=== PATIENT | female | born 1995 ===

== ENCOUNTER 2018-08-04 06:00 | Inpatient (IN) ==
[2018-08-04] MEDS ORDERED: *HR* Nalbuphine 10 MG/ML AMPUL IVP PRN (13:59)
[2018-08-04] MEDS ORDERED: Naloxone 0.4 MG/ML INJ IVP PRN (13:59)
[2018-08-04] MEDS ORDERED: Metoclopramide 10 MG/2 ML VIAL IVP PRN (13:59)
[2018-08-04] MEDS ORDERED: Famotidine 20 MG/2 ML VIAL IVP PRN (13:59)
[2018-08-04] MEDS ORDERED: Ondansetron 4 MG/2 ML VIAL IVP PRN (13:59)
[2018-08-04] MEDS ORDERED: miSOPROStol 25 MCG TABLET PO PRN (13:59)
[2018-08-04] MEDS ORDERED: Oxytocin 20 units/ LR 1000 mL 20 UNIT/1,000 ML BAG IVC SCH (14:00)
[2018-08-04 14:41] LABS: Basophils # 0.1 K/mcL (0.0-0.2); Basophils % 0.5 %; Eosinophils # 0.3 K/mcL (0.0-0.6); Eosinophils % 2.6 %; Hematocrit 32.8 % (35.3-44.9); Hemoglobin 11.6 g/dL (11.5-15.4); Immature Granulocytes % 0.7 % (0-4); Lymphocytes # 1.7 K/mcL (0.6-4.6); Lymphocytes % 16.5 %; Mean Corpuscular HGB Conc 35.4 g/dL (31.6-35.5); Mean Corpuscular Hemoglobin 31.4 pg (28.0-33.3); Mean Corpuscular Volume 88.9 fL (83.0-100.0); Mean Platelet Volume 10.2 fL (9.4-12.4); Monocytes # 0.8 K/mcL (0.0-1.3); Monocytes % 7.4 %; Neutrophils # 7.5 K/mcL (1.6-8.9); Platelet Count 287 K/mcL (140-400); Red Blood Count 3.69 M/mcL (3.82-4.97); Red Cell Distribution Width 11.9 % (11.5-14.5); Segmented Neutrophils % 72.3 %
[2018-08-04 14:51] LABS: Amphetamine Screen,Urine Negative ng/mL (Cutoff=1000); Barbiturate Screen,Urine Negative ng/mL (Cutoff=200); Benzodiazepines Screen,Urine Negative ng/mL (Cutoff=200); Cannabinoid Screen,Urine Negative ng/mL (Cutoff = 50); Cocaine Screen,Urine Negative ng/mL (Cutoff= 300); Opiate Screen,Urine Negative ng/mL (Cutoff=300); Phencyclidine Screen,Urine Negative ng/mL (Cutoff=25)
--- NOTE | 2018-08-04 15:41 | OB/GYN History & Physical ---
Date of Encounter: 08/04/18 Time of Encounter: 15:39 Assessment and Plan (1) 39 weeks gestation of Current visit: Yes Status: Acute Admitted for induction of labor (2) NST (non-stress test) reactive Current visit: Yes Status: Acute FHR 145 bpm, moderate variability, +15x15 accels, no decels Irregular contractions. (3) Polyhydramnios affecting in third trimester Current visit: Yes Status: Acute Last LALITHA on 07/17/18 was 22.22 with largest pocket 9.43 Admitted for induction of labor at 39.0 wks Plan of care discussed with Dr. Hernandez, physician vocational rehabilitation consultant. History of Present Illness Chief complaint: Induction of labor at 39.0 wks for polyhydramnios HPI: Ms. Dobbins is a 23 year old female G1 at 39.0 wks who presents for induction of labor secondary to term and polyhydramnios. Her was compensated by an elevated one-hour glucose of 180, her 3 hour GTT was normal. Patient also had torch titers drawn due to polyhydramnios the toxoplasmosis IgM came back elevated but after discussion with [facility] was decided it was likely a false positive and Dr. Vega recommended no further intervention. Patient reports today positive movement, denies vaginal bleeding and leakage of fluid. She does have a specific plan and at this time requests no medication for induction but does agree to a cervical Sosa. Blood type A+ GBS negative HbsAG negative Rubella immune Varicella immune T pal negative HIV-negative Past Med Surg Social Fam HX - Past Medical History Source: patient Medical history: no medical history Psychiatric history: no psych history - Past Surgical History Surgical History: no surgical history - Social History Smoking Status: Never smoker Smokeless Tobacco Status: No Alcohol use: none Drug use: none Current living situation: Home - Independent, With Family Activity Level: Independent ambulation Recent Out of Country Travel Within the Last 8 Weeks: No Exposure or Possible Exposure to Illness During Travel: No - Family History Mother Name: Pt. denies any family medical history Obstetrical History - Pregnancies : 1 Para: 0 Term: 0 : 0 Ab's: 0 Livin Medications and Allergies Pnv No.95/Ferrous Fum/Folic AC [ Caplet] 1 each PO DAILY 08/04/18 [History] Allergy/AdvReac Type Severity Reaction Status Date / Time No Known Allergies Allergy Verified 08/04/18 14:03 Exam - Constitutional Constitutional: well developed, well nourished, no acute distress, average body habitus - Neck Neck exam: full ROM, normal inspection - Lungs Respiratory exam: CTAB - Cardiovascular Cardiovascular exam: RRR, +S1, +S2 - Breasts Breast: bilateral: normal - Abdomen Abdomen: Present: bowel sounds normal, gravid, non tender - Extremities Extremities exam: full ROM, normal capillary refill, normal inspection - Vulva Vulva: bilateral: normal - Vagina Vagina: Present: normal moisture - Anus/Rectum Anus/Rectum: Present: normal perianal skin Results Result Diagrams: 08/04/18 14:01 Abnormal lab results RBC 3.69 M/mcL (3.82-4.97) L 08/04/18 14:01 Hct 32.8 % (35.3-44.9) L 08/04/18 14:01 All other labs normal. - VTE Reasons for not Prescribing Prophylaxis: Treatment not Indicated - Low risk for VTE
--- NOTE | 2018-08-04 17:40 | OB Labor Progress Note ---
Date of Encounter: 08/04/18 Time of Encounter: 16:40 Labor Progress Note - Subjective Subjective: Patient resting in rocking chair. Denies pain at this time. - Vital Signs Vital Signs: WNL - Cervix Cervix: 2/70/-2 - Heart Tones Heart Tones: FHR 145 bpm, moderate variability, +15x15 accels, no decels. - Ama Ama: Irregular - Interventions Interventions: SVE Cervical nicole double balloon inserted without difficulty, 60 ml sterile water instilled into uterine balloon, 40 ml sterile water instilled in vaginal balloon. Patient tolerated procedure well. - Plan Physician notified: Yes Physician notified details: Dr. Garcia notified of cervical nicole insertion, last LALITHA and EFW and plan of care including patient wishes for a natural Plan: Allow patient to ambulate as she tolerates, continue expectant management Remove nicole after 12 hours unless patient unable to tolerate prior to that time. Nursing may remove 10 mL every hour from vaginal nicole if patient unable to tolerate.
--- NOTE | 2018-08-04 21:20 | OB Labor Progress Note ---
Date of Encounter: 08/04/18 Time of Encounter: 21:18 Labor Progress Note - Subjective Subjective: Patient coping well with contractions. Denies need for pain medication at this time. - Vital Signs Vital Signs: WNL, afebrile - Cervix Cervix: 6/80/-2 - Heart Tones Heart Tones: FHR 140 bpm, moderate variability, +15x15 accels, no decels. - [place]: Irregular - Interventions Interventions: SVE, double nicole removed to reveal cervix 6/80/-2 AROM for copious amounts of clear fluid - Plan Physician notified: No Plan: Continue expectant management Recheck cervix in 4 hours or sooner if desired Patient to remain ambulatory, may use intermittent monitoring if she decides to shower. Anticipate
[2018-08-05] MEDS: Ringers Solution, Lactated 1,000 ML IVC SCH ×2 (03:01→11:11)
[2018-08-05] MEDS ORDERED: Acetaminophen 325 MG TABLET PO PRN (14:52)
[2018-08-05] MEDS ORDERED: Ampicillin 2 GM in 0.9 % Sodium Chloride Mini Bag 100 ML IVPB SCH ×2 (14:59→17:00)
--- NOTE | 2018-08-05 15:02 | OB Labor Progress Note ---
Date of Encounter: 08/05/18 Time of Encounter: 15:45 Labor Progress Note - Subjective Subjective: Patient in bed, discussed POC with patient. Patient denies any questions or concerns. At this time patient had decided to get an epidural. - Cervix Cervix: 8/100/0 - Heart Tones Heart Tones: 155 bpm moderate variability +15x15 accels no decels noted. Cat. 1 tracing. - Golva Golva: 1-3 min apart - Interventions Interventions: SVE, maternal temp, discussed labor progress and interventions. - Plan Physician notified: Yes Physician notified details: Maternal vital signs EFM and toco patient's request for POC Plan: Patient to get tylenol po now Start Ampicillin 2 grams every 6 hours Patient to get epidural IUPC to be placed and continue to increase pitocin as needed.
[2018-08-05] MEDS ORDERED: Epidural Premix (fent/bupiv) 110 ML EP ONE (15:16)
[2018-08-05] MEDS ORDERED: *HR* FentaNYL (PF) 100 MCG/2 ML VIAL ONE (15:18)
[2018-08-05] MEDS ORDERED: *HR* Ropivacaine/PF 0.2% 20 ML VIAL ONE (15:18)
[2018-08-05] MEDS ORDERED: Lidocaine -MPF 1% 5 ML AMPUL ONE (15:18)
--- NOTE | 2018-08-05 16:27 | Anesthesia Evaluation PreOp ---
Date of Encounter: 08/05/18 Time of Encounter: 15:15 - Past History Planned Operation: mckenna Cardiac History: Denies any Significant Hx Pulmonary History: Denies Any Significant HX FINAL APPLICATION REVIEWER History: Denies Any Significant HX Other Medical History: Denies Any Significant HX : Yes (, term) Alcohol Use: none Drug use: none Medications and Allergies Pnv No.95/Ferrous Fum/Folic AC [ Caplet] 1 each PO DAILY 08/04/18 [History] Allergy/AdvReac Type Severity Reaction Status Date / Time No Known Allergies Allergy Verified 08/04/18 14:03 - Meds/Allergy Pre-op Review Medications Reviewed: Yes Allergies Reviewed: Yes Beta Blockers on Current Med List: No Anesthesia Results - Labs 08/04/18 14:01 Anesthesia Exam Height: 62 Weight: 75 - HEENT Pupil (Motor): Pupils equal Mallampati: II Teeth: Normal Oral Opening: Greater than 3 - FINAL APPLICATION REVIEWER LOC: Oriented FINAL APPLICATION REVIEWER Motor: Normal RUE, Normal LUE, Normal RLE, Normal LLE, Normal Face FINAL APPLICATION REVIEWER Sensory: Normal: RUE, LUE, RLE, LLE, Face - Cardiac Rhythm: Regular Murmur: None JVD: No Carotid Bruit: No - Pulmonary Breath Sounds: bilateral Clear Respiratory Effort: Symmetrical Anesthesia Assess/Plan ASA Score: 2 Level of consciousness: Cooperative Anesthetic Plan: Epidural Monitoring Plan: Standard Monitors
--- NOTE | 2018-08-05 16:27 | OB Labor Progress Note ---
Date of Encounter: 08/05/18 Time of Encounter: 16:25 Labor Progress Note - Subjective Subjective: Patient resting comfortable with epidural in place. Discussed POC with patient. Patient denies any questions or concerns. - Cervix Cervix: 9/100/0 - Heart Tones Heart Tones: 155 bpm moderate variability no decels or accels noted. at this time. - Raymond Raymond: 3-4 min apart - Interventions Interventions: SVE, IUPC placed without difficulty. - Plan Physician notified: No Plan: Continue labor management anticipate
--- NOTE | 2018-08-05 16:29 | Anesthesia Procedures ---
Addendum entered and electronically signed by Austyn Way CRNA 08/06/18 04:26: Infant Delivery Date: 08/05/18 Delivery Time: 23:10 Original Note: Date of Encounter: 08/05/18 Time of Encounter: 15:15 (procedure completed at 1547) Procedures: Anesthesia - Epidural/Spinal Patient ID/Chart reviewed: Yes Patient examined: Yes OB Eval: Gestational age: 39 OB Eval: : 1 OB Eval: Hx Para: 0 OB Eval: Contractions: Non-stressed pattern Consent Obtained: Yes Supplemental Oxygen: None/Room Air Site Prep: Aseptic Technique Patient position: upright Local Anesthetic: Lidocaine 1% Amount of Local Anesthetic used: 3 Touhy Needle Gauge: 18 Touhy Needle Depth (cm): 6 Catheter Depth at Skin (cm): 12 Test Dose (1.5% Lido + Epi): Volume given (mls): 3 Test Dose Result: Negative Loading Dose: Fentanyl (mcg): 100 Loading Dose: Other: 3ml 0.2% ropivicaine Loading Dose Administered: Thru Touhy Needle Infusion Med: 0.125% Bupivacaine w/ 2 mcg/ml Fentanyl Infusion Rate (mls/hr): [address]: Tegaderm Interspace Used: L3-L4 Loss of Resistance (ARECLIA): Yes Blood: No CSF: No Paresthesia: No
[2018-08-05] MEDS ORDERED: Epidural Premix (fent/bupiv) 110 ML EP SCH (16:30)
[2018-08-05] MEDS ORDERED: Oxytocin 20 units/ LR 1000 mL 20 UNIT/1,000 ML BAG IVC ONE (22:40)
--- NOTE | 2018-08-06 00:23 | OB/GYN Procedure Note ---
Delivery - Delivery Date: 08/05/18 Provider: Mandy Martinez Intrapartum events: febrile- temp >100.3, prolonged 2nd stage>2.5hr, polyhydramnios Delivery induction: AROM, oxytocin, nicole Delivery monitor: external FHT, internal uterine Anesthesia: epidural Quantitated Blood Loss: 150 - (s) Infant A Infant Delivery Date: 08/05/18 Delivery Time: 23:10 Presentation: vertex Position: ONDINA Route of delivery: Gender: Female Viability: Viable Pounds: 8 Ounces: 10 Weight Gram: 3915 kg at 1 minute: 4 at 5 mins: 8 Shoulder Dystocia: not encountered Specimens collected: cord blood, venous cord gases, arterial cord gases Placenta: spontaneous, uterine exploration Cord: 3 umbilical vessels - Repair Episiotomy: none Laceration Description: None - Complications Delivery complications: none - Disposition Mom disposition: stable in LDR disposition: stable in LDR - Comments Comments: Called to LDR patient feeling rectal pressure. SVE patient complete. Decision made to start pushing at this time. During pushing Dr. Pace was updated on EFM, TOCO and pushing progress. No new recommendations were given. Patient continued to push and after 3.5 hours of pushing patient spontaneously delivered a viable female infant over an intact perineum. Infant was placed on maternal abdomen. Cord was quickly clamped and cut and care was taken over by nursery staff. Cord segment and cord gases were collected. Cord blood collected. Infant Apgars 4 at 1 minute and 8 at 5 minutes. Placenta delivered spontaneously and intact. Infant was returned to mother for some skin to skin prior to going to nursery for 6 hour evaluation. Patient stable in LDR for 1 hour recovery to allow her to get to nursery to be with infant. Pericare provided. All counts correct.
[2018-08-06] MEDS ORDERED: Ibuprofen 600 MG TABLET PO PRN (01:53)
[2018-08-06] MEDS ORDERED: Acetaminophen 325 MG TABLET PO PRN (01:53)
[2018-08-06] MEDS ORDERED: Measles/Mumps/Rubella Vacc 0.5 ML VIAL SQ PRN (01:53)
[2018-08-06] MEDS ORDERED: Lanolin 7 G OINT...G. TP PRN (01:53)
[2018-08-06] MEDS ORDERED: Benzocaine/Menthol 56 GM AEROSOL SPRAY TP PRN (01:53)
[2018-08-06] MEDS ORDERED: Oxytocin 20 units/ LR 1000 mL 20 UNIT/1,000 ML BAG IVC SCH (01:53)
[2018-08-06] MEDS ORDERED: Prenatal Vit/FA 1 EACH TABLET PO SCH (09:00)
--- NOTE | 2018-08-06 09:42 | OB/GYN Progress Note ---
Date of Encounter: 08/06/18 Time of Encounter: 09:39 - Assessment and Plan (1) Status post vaginal delivery Current Visit: Yes Status: Acute Continue to monitor patient for 24 s/p vaginal delivery Supportive care encourage fluids and PO intake, ambulation. Discharge after 24 hour observation. Subjective - Subjective Principal diagnosis: Vaginal Delivery Interval history: Patient has been experiencing minimal vaginal bleeding. Patient with no pain at this time. Able to urinate without difficulty. Passing gas and tolerating PO intake. Minimal bilateral LE swelling at trace pitting edema which is improved per patient. No other complaints at this time. Patient reports: appetite normal, voiding normally, pain well controlled, ambulating normally : doing well Objective - Latest Vital Signs Latest vital signs: Vital Signs Temp Pulse Resp BP Pulse Ox 08/06/18 07:48 97.5 F L 85 14 119/78 97 08/06/18 04:10 98.3 F 94 14 126/85 98 08/06/18 03:00 97.6 F 81 16 118/77 98 08/06/18 02:00 97.7 F 82 15 118/76 98 Intake and Output 08/05/18 08/06/18 08/06/18 23:59 07:59 15:59 Output Total 600 / 600 Balance -600 / -600 Output: Urine 600 / 600 - Exam Lungs: bilateral: normal Chest: Normal S1, Normal S2 Extremities: Present: edema (trace pitting) Abdomen: Present: normal appearance, soft Uterus: Present: normal Uterus Position: 1 Finger Below Umbilicus - Allied health notes Allied health notes reviewed: nursing
[2018-08-06 22:29] VITALS: BP 124/78
--- NOTE | 2018-08-07 00:34 | Discharge Summary ---
Date of Encounter: 08/07/18 Time of Encounter: 00:30 - Discharge Diagnosis (1) Status post vaginal delivery Priority: Primary Status: Acute Comments: Pt stable, voiding well, pain well managed on po pain medication, desires disc harge due to being transferred to [facility] - Discharge Medications Prescriptions: Ibuprofen [Motrin] 600 mg PO Q6HR PRN #60 tablet PRN Reason: Cramping Docusate [Colace] 100 mg PO BID #30 capsule Home Medications: Pnv No.95/Ferrous Fum/Folic AC [ Caplet] 1 each PO DAILY 08/04/18 [History] Acetaminophen [Tylenol] 650 mg PO Q6HR PRN tablet 08/07/18 [Rx] Benzocaine/Menthol [place] [Dermoplast [place]] 1 appl TP QID PRN aerosol 08/07/18 [Rx] Docusate [Colace] 100 mg PO BID #30 capsule 08/07/18 [Rx] Ibuprofen [Motrin] 600 mg PO Q6HR PRN #60 tablet 08/07/18 [Rx] Lanolin [Lansinoh] 1 appl TP TID PRN oint...g. 08/07/18 [Rx] Allergies/Adverse Reactions: Allergy/AdvReac Type Severity Reaction Status Date / Time No Known Allergies Allergy Verified 08/04/18 14:03 Data Procedures and tests throughout hospitalization: Laboratory Tests 08/04/18 08/04/18 13:59 14:01 WBC 10.4 RBC 3.69 L Hgb 11.6 Hct 32.8 L MCV 88.9 MCH 31.4 MCHC 35.4 RDW 11.9 Plt Count 287 MPV 10.2 Immature Gran % 0.7 Seg Neutrophils % 72.3 Lymphocytes % 16.5 Monocytes % 7.4 Eosinophils % 2.6 Basophils % 0.5 Neutrophils # 7.5 Lymphocytes # 1.7 Monocytes # 0.8 Eosinophils # 0.3 Basophils # 0.1 Urine Opiates Screen Negative Ur Barbiturates Screen Negative Ur Phencyclidine Scrn Negative Ur Amphetamines Screen Negative U Benzodiazepines Scrn Negative Urine Cocaine Screen Negative U Marijuana (THC) Screen Negative Ur Drug Screen Interp See Below Date of admission: 08/04/18 13:58 Primary care physician: PCP NONE Consults: 08/06/18 01:53 Consult to Career Center Advisor [CONS] Routine Comment: Vaginal delivery, consult needed Discharging clinician: Jen Angeles Anticipated date of discharge: 08/07/18 - Patient Status Disposition: Home, Self-Care Condition: Good Functional capacity at discharge: independent ambulation Overall status at discharge: patient is back to baseline - Discharge Instructions Follow Up With: NONE,PCP [Primary Care Provider] - Mandy Martinez, CNM [Non-Partnered Physician] - - Diet and Activity Activity: resume usual activities as tolerated Diet: regular diet Hospital Course Reason for admission: induction of labor Delivery: Episiotomy: none Laceration: none Other procedures: none complications: none Discharge diagnosis: IUP at term delivered baby: female Hospital course: Delivery - Delivery Date: 08/05/18 Provider: Mandy Martinez Intrapartum events: febrile- temp >100.3, prolonged 2nd stage>2.5hr, polyhydramnios Delivery induction: AROM, oxytocin, nicole Delivery monitor: external FHT, internal uterine Anesthesia: epidural Quantitated Blood Loss: 150 - (s) A Delivery Date: 08/05/18 Delivery Time: 23:10 Presentation: vertex Position: ONDINA Route of delivery: Gender: Female Viability: Viable Pounds: 8 Ounces: 10 Weight Gram: 3915 kg at 1 minute: 4 at 5 mins: 8 Shoulder Dystocia: not encountered Specimens collected: cord blood, venous cord gases, arterial cord gases Placenta: spontaneous, uterine exploration Cord: 3 umbilical vessels - Repair Episiotomy: none Laceration Description: None - Complications Delivery complications: none - Disposition Mom disposition: stable in PP and appropriate for discharge Time Attestation: Total time spent providing and/or coordinating discharge services: Time Spent: Less than 30 minutes Exam - Constitutional Vitals: Temp Pulse Resp BP Pulse Ox 97.9 F 78 14 124/78 98 08/06/18 20:45 08/06/18 20:45 08/06/18 20:45 08/06/18 20:45 08/06/18 20:45 General appearance IM: A&O X 3 - Respiratory Respiratory exam: Present: CTAB - Cardiovascular Cardiovascular exam IM: Present: RRR - GI/Abdominal GI/Abdominal exam IM: normal bowel sounds - Uterine Tone: Firm Uterus Position: At Umbilicus - Extremities Exam Extremities exam IM: Present: normal capillary refill, normal inspection - Neurological Exam Neurological exam: normal gait, oriented X3 - Psychiatric Additional comments: mood appropriate for situation
== END 2018-08-07 00:45 | disposition home or self-care (01) | DRG 807 ==
LOC: 1NENULAB 13:58 → 1NENUOBS 08-06 01:50
PROVIDERS: ADMIT Registered Nurse; ATTEND Registered Nurse